=== PATIENT | male | born 1955 | race Caucasian/White ===

== ENCOUNTER 2021-06-10 09:59 | Emergency (ER) | payer OTHER ==
[~2021-06-10] VITALS: Ht 167.6 cm; Wt 59.0 kg
[2021-06-10] MEDS ORDERED: LIPITOR20 MG PO (10:40)
== END 2021-06-10 11:38 | disposition home or self-care (01) ==
LOC: ER 09:59
DX: H10.89 Other conjunctivitis (principal)